=== PATIENT | female | born 1995 | race Two or more races ===

== ENCOUNTER 2024-07-15 09:34 | Emergency (ER) | payer OTHER ==
[~2024-07-15] VITALS: Ht 165.1 cm; Wt 115.2 kg
[2024-07-15] MEDS ORDERED: MESTINON60 M1 (09:53)
[2024-07-15] MEDS ORDERED: ACETAMINOPHEN 500 MG GEL..CAP PO ONE (11:00)
[2024-07-15 11:30] LABS: HEMATOCRIT 38.5 % (36.0-45.00); HEMOGLOBIN 12.9 g/dL (12.0-15.00); MEAN CELL VOLUME 84.4 fL (80.00-100.00); MEAN CORPUSCULAR HEMOGLOBIN 28.3 pg (27.00-32.0); MEAN CORPUSCULAR HGB CONC 33.5 g/dl (32.0-36.0); PLATELET COUNT 289 K/uL (150-450); RED BLOOD COUNT 4.56 M/uL (4.00-6.00); RED CELL DISTRIBUTION WIDTH 14.9 % (11.5-14.5)
[2024-07-15 12:14] LABS: CALCIUM 9.1 mg/dL (8.5-10.1); CREATININE SERUM 0.47 mg/dL (0.55-1.02); GFR 156.66; POTASSIUM 3.8 mEq/L (3.5-5.1)
[2024-07-15] MEDS ORDERED: PEPCID AC20 MG PO (12:27)
== END 2024-07-15 13:55 | disposition home or self-care (01) ==
LOC: ER 09:35
PROVIDERS: General Practice
DX: J06.9 Acute upper respiratory infection, unspecified (principal); J00 Acute nasopharyngitis [common cold]; Z87.09 Personal history of other diseases of the respiratory system; Z20.822 Contact with and (suspected) exposure to COVID-19

== ENCOUNTER 2024-08-26 11:21 | Inpatient (IN) | payer OTHER ==
[~2024-08-26] VITALS: Ht 165.1 cm; Wt 104.3 kg
[~2024-08-26 11:21] MED LIST: MESTINON60 M1; PEPCID AC20 MG PO
[2024-08-26] MEDS ORDERED: FAMOTIDINE/PF 20 MG/2 ML VIAL IV ONE (14:15)
[2024-08-26] MEDS ORDERED: 0.9 % SODIUM CHLORIDE 500 ML IV ONE (14:15)
[2024-08-26 15:21] LABS: HEMATOCRIT 39.9 % (36.0-45.00); MEAN CELL VOLUME 84.7 fL (80.00-100.00); MEAN CORPUSCULAR HEMOGLOBIN 27.6 pg (27.00-32.0); MEAN CORPUSCULAR HGB CONC 32.6 g/dl (32.0-36.0); PLATELET COUNT 241 K/uL (150-450); RED BLOOD COUNT 4.71 M/uL (4.00-6.00); RED CELL DISTRIBUTION WIDTH 15.3 % (11.5-14.5)
[2024-08-26 15:26] LABS: URINE APPEARANCE Clear; URINE BILIRRUBIN Negative (NEGATIVE); URINE BLOOD Negative; URINE COLOR Yellow; URINE GLUCOSE Negative (NEGATIVE); URINE KETONE Negative (NEGATIVE); URINE LEUKOCYTE Negative; URINE NITRATE Negative; URINE PROTEIN Negative (NEGATIVE); URINE UROBILINOGEN 0.2 E.U./dl
[2024-08-26 15:30] LABS: URINE BACTERIA 536.6 uL (0.0-1933); URINE EPITHELIAL CELLS 26.2 uL (0.0-38.8); URINE WBC 16.8 uL (0.0-23.2)
[2024-08-26 15:51] LABS: URINE RBC 1.2 uL (0.0-20.8)
[2024-08-26 16:03] LABS: ALBUMIN 3.8 gm/dL (3.4-5.0); BILIRUBIN TOTAL 0.35 mg/dL (0.3-1.2); CALCIUM 9.7 mg/dL (8.5-10.1); CREATININE SERUM 0.4 mg/dL (0.55-1.02); GFR 188.71; GLOBULINA 4.3 G/DL (2.4-3.5); POTASSIUM 3.98 mEq/L (3.5-5.1); TOTAL PROTEIN 8.1 gm/dL (6.4-8.2)
[2024-08-26] MEDS ORDERED: PIPERACILLIN/TAZOBACTAM SODIUM 3.375 GM VIAL IV ONE (17:00)
[2024-08-26] MEDS ORDERED: KETOROLAC TROMETHAMINE 30 MG VIAL IV ONE (17:00)
[2024-08-26 17:37] LABS: PARTIAL THROMBOPLASTIN TIME 27.9 SECONDS (22.0-34.0); PROTHROMBIN TIME 10.9 SECONDS (9.0-11.5)
[2024-08-26] MEDS ORDERED: ACETAMINOPHEN 500 MG GEL..CAP PO PRN (19:00)
[2024-08-26] MEDS ORDERED: 0.9 % SODIUM CHLORIDE 1,000 ML IV SCH (19:00)
[2024-08-26] MEDS ORDERED: MORPHINE SULFATE 4 MG/ML CARTRIDGE IV PRN (19:00)
[2024-08-26] MEDS ORDERED: ONDANSETRON HCL 4 MG in 0.9 % SODIUM CHLORIDE 50 ML IV PRN (19:00)
[2024-08-26] MEDS ORDERED: MORPHINE SULFATE 4 MG/ML CARTRIDGE IV ONE (19:00)
[2024-08-26] MEDS ORDERED: PYRIDOSTIGMINE BROMIDE 60 MG TABLET PO SCH (21:00)
[2024-08-26] MEDS ORDERED: SUGAMMADEX SODIUM 200 MG/2 ML VIAL IV ONE (23:45)
[2024-08-27] VITALS: BP 142/82; O2SAT 94
[2024-08-27] MEDS ORDERED: PIPERACILLIN/TAZOBACTAM SODIUM 3.375 GM in DEXTROSE 5 % IN WATER 100 ML IV SCH
[2024-08-27 03:00] VITALS: BP 106/71; O2SAT 100
[2024-08-27 08:58] VITALS: BP 107/72; O2SAT 99
[2024-08-27] MEDS ORDERED: LACTOBACILLUS ACIDOPHILUS 1 CAP CAP PO SCH (09:00)
[2024-08-27] MEDS ORDERED: SUCRALFATE 1 G TABLET PO SCH (09:00)
[2024-08-27] MEDS ORDERED: FAMOTIDINE/PF 20 MG in 0.9 % SODIUM CHLORIDE 8 ML IV PUSH SCH (09:00)
[2024-08-27] MEDS ORDERED: KETOROLAC TROMETHAMINE 30 MG VIAL IM PRN (14:45)
[2024-08-27 16:00] VITALS: BP 125/56; O2SAT 100
[2024-08-28 00:29] VITALS: BP 141/68; O2SAT 97
[2024-08-28 08:00] VITALS: BP 112/67; O2SAT 96
== END 2024-08-28 14:15 | disposition home or self-care (01) | DRG 399 ==
LOC: ER 11:23 → SEC-K 19:39 → SURG 19:39
PROVIDERS: Nurse Practitioner Family; Surgery; ADMIT Internal Medicine; ATTEND Internal Medicine
PROC: BW21YZZ Computerized Tomography (CT Scan) of Abdomen and Pelvis using Other Contrast (ICD-10-PCS; 2024-08-26)
PROC: 0DTJ4ZZ Resection of Appendix, Percutaneous Endoscopic Approach (ICD-10-PCS; principal; 2024-08-26 20:30)
DX: K35.890 Other acute appendicitis without perforation or gangrene (principal)

== ENCOUNTER 2024-11-17 12:15 | Emergency (ER) | payer OTHER ==
[~2024-11-17] VITALS: Ht 165.1 cm; Wt 104.3 kg
[2024-11-17] MEDS ORDERED: IPRATROPIUM/ALBUTEROL SULFATE 3 ML AMPUL.NEB IH SCH (13:45)
[2024-11-17] MEDS ORDERED: MAGNESIUM SULFATE IN WATER 50 ML IV NR (13:45)
[2024-11-17] MEDS ORDERED: METHYLPREDNISOLONE SOD SUCC 125 MG VIAL IV ONE (13:45)
[2024-11-17] MEDS ORDERED: IPRATROPIUM/ALBUTEROL SULFATE 3 ML AMPUL.NEB IH ONE (13:55)
[2024-11-17] MEDS ORDERED: METHYLPREDNISOLONE SOD SUCC 125 MG VIAL ONE (14:03)
[2024-11-17] MEDS ORDERED: MAGNESIUM SULFATE 50% 1,000 MG/2 ML VIAL ONE (14:03)
[2024-11-17 14:47] LABS: HEMATOCRIT 38.6 % (36.0-45.00); HEMOGLOBIN 12.6 g/dL (12.0-15.00); MEAN CELL VOLUME 85.2 fL (80.00-100.00); MEAN CORPUSCULAR HEMOGLOBIN 27.7 pg (27.00-32.0); MEAN CORPUSCULAR HGB CONC 32.5 g/dl (32.0-36.0); PLATELET COUNT 215 K/uL (150-450); RED BLOOD COUNT 4.53 M/uL (4.00-6.00); RED CELL DISTRIBUTION WIDTH 15.1 % (11.5-14.5)
[2024-11-17] MEDS ORDERED: KETOROLAC TROMETHAMINE 30 MG VIAL IV ONE (16:00)
[2024-11-17] MEDS ORDERED: KETOROLAC TROMETHAMINE 30 MG VIAL ONE (16:16)
[2024-11-17] MEDS ORDERED: ZITHROMAX TRI-500 MG PO (17:15)
[2024-11-17] MEDS ORDERED: ACETAMINOPHEN500 M1 PO (17:15)
[2024-11-17] MEDS ORDERED: GILTUSS COUGH-118 M1 PO (17:15)
[2024-11-17] MEDS ORDERED: ALBUTEROL2.5 MG/3 M IH (17:20)
== END 2024-11-17 17:27 | disposition home or self-care (01) ==
LOC: ER 12:18
PROVIDERS: Preventive Medicine Public Health & General Preventive Medicine
DX: J06.9 Acute upper respiratory infection, unspecified (principal); J45.909 Unspecified asthma, uncomplicated; G70.00 Myasthenia gravis without (acute) exacerbation; Z20.822 Contact with and (suspected) exposure to COVID-19

== ENCOUNTER 2025-02-10 11:30 | Emergency (ER) | payer OTHER ==
[~2025-02-10] VITALS: Ht 170.2 cm; Wt 113.4 kg
[~2025-02-10 11:30] MED LIST changes: +ACETAMINOPHEN500 M1 PO; +ALBUTEROL2.5 MG/3 M IH; +GILTUSS COUGH-118 M1 PO; +ZITHROMAX TRI-500 MG PO
[2025-02-10] MEDS ORDERED: FAMOtidine 10 MG/ML (4ML VIAL) IV ONE (12:00)
[2025-02-10] MEDS ORDERED: 0.9 % SODIUM CHLORIDE 1,000 ML IV ONE (12:00)
[2025-02-10] MEDS ORDERED: KETOROLAC TROMETHAMINE 30 MG VIAL IV ONE ×2 (12:00→16:30)
[2025-02-10] MEDS ORDERED: CHOLESTYRAMINE/ASPARTAME LIGHT 4 G/PKT PACKET PO ONE (12:00)
[2025-02-10] MEDS ORDERED: FAMOTIDINE/PF 20 MG/2 ML VIAL ONE (12:43)
[2025-02-10] MEDS ORDERED: KETOROLAC TROMETHAMINE 30 MG VIAL ONE ×2 (12:43→16:17)
[2025-02-10 12:54] LABS: URINE APPEARANCE Clear; URINE BILIRRUBIN Negative (NEGATIVE); URINE BLOOD Small; URINE COLOR Yellow; URINE GLUCOSE Negative (NEGATIVE); URINE KETONE Negative (NEGATIVE); URINE LEUKOCYTE Negative; URINE NITRATE Negative; URINE PROTEIN Negative (NEGATIVE); URINE UROBILINOGEN 0.2 E.U./dl
[2025-02-10 12:58] LABS: URINE BACTERIA 1501.6 uL (0.0-1933); URINE EPITHELIAL CELLS 40.6 uL (0.0-38.8); URINE RBC 4.2 uL (0.0-20.8); URINE WBC 23.4 uL (0.0-23.2)
[2025-02-10 13:04] LABS: HEMATOCRIT 38.1 % (36.0-45.00); HEMOGLOBIN 12.6 g/dL (12.0-15.00); MEAN CELL VOLUME 84.5 fL (80.00-100.00); MEAN CORPUSCULAR HEMOGLOBIN 28.1 pg (27.00-32.0); MEAN CORPUSCULAR HGB CONC 33.2 g/dl (32.0-36.0); PLATELET COUNT 251 K/uL (150-450)
[2025-02-10 13:33] LABS: ALBUMIN 3.8 gm/dL (3.4-5.0); ALKALINE PHOSPHATASE 90 U/L (50-136); ALT/SGPT 23 U/L (12-78); AMYLASE 53 U/L (25-115); ANION GAP 6 (10.0-20.0); AST/SGOT 12 U/L (15-37); BILIRUBIN TOTAL 0.38 mg/dL (0.3-1.2); BILIRUBIN,CONJUGATED 0.12 mg/dL (0.0-0.2); BILIRUBIN,UNCONJUGATED 0.26 mg/dL (0.0-0.6); BLOOD UREA NITROGEN 8 mg/dL (7-18); BUN CREA RATIO 23 (7.0-25.0); CALCIUM 9.4 mg/dL (8.5-10.1); CARBON DIOXIDE 31 mEq/L (21-32); CHLORIDE 106 mmol/L (98-107); CREATININE SERUM 0.35 mg/dL (0.55-1.02); GFR 218.64; GLOBULINA 4.4 G/DL (2.4-3.5); GLUCOSE FASTING 89 mg/dL (65-100); LIPASE 47 U/L (13-75); OSMOLALITY SERUM 275 MOSM/KG (275-295); POTASSIUM 4.11 mEq/L (3.5-5.1); SODIUM 139 mmol/L (136-145); TOTAL PROTEIN 8.2 gm/dL (6.4-8.2)
[2025-02-10 13:38] LABS: COVID-19 AG NEGATIVE (NEGATIVE)
[2025-02-10 13:39] LABS: INFLUENZA A AG NEGATIVE (NEGATIVE)
[2025-02-10 13:45] LABS: HCG QUANTITATIVE < 1 mUI/mL (1-3)
[2025-02-10] MEDS ORDERED: PEPCID AC20 MG PO (16:12)
[2025-02-10] MEDS ORDERED: ZOFRAN8 MG PO (16:12)
[2025-02-10] MEDS ORDERED: BENADRYL25 MG PO (16:13)
== END 2025-02-10 16:48 | disposition home or self-care (01) ==
LOC: ER 11:30
PROVIDERS: General Practice
DX: R19.7 Diarrhea, unspecified (principal); R11.0 Nausea; Z20.822 Contact with and (suspected) exposure to COVID-19

== ENCOUNTER 2025-03-09 13:38 | Emergency (ER) | payer OTHER ==
[~2025-03-09] VITALS: Ht 167.6 cm; Wt 113.4 kg
[~2025-03-09 13:38] MED LIST changes: +BENADRYL25 MG PO; +ZOFRAN8 MG PO
[2025-03-09] MEDS ORDERED: GUAIFENESIN/DEXTROMETHORPHAN 100MG/10ML BLIST.PACK PO ONE ×2 (15:45→15:50)
[2025-03-09 16:31] LABS: BASO % 0.4 % (0.1-1.2); EOS # 0.19 (0.04-0.54); EOS % 2.3 % (0.7-7.0); HEMATOCRIT 38.7 % (34.1-44.9); HEMOGLOBIN 12.5 g/dL (11.2-15.7); LYMPH # 3.12 (1.18-3.74); LYMPH % 38.5 % (19.3-53.1); MONO % 4.9 % (4.7-12.5); NEUT # 4.36 (1.56-6.13); NEUT % 53.8 % (34.0-71.1); PLATELET COUNT 302 K/uL (163-369); RED BLOOD COUNT 4.63 M/uL (3.93-5.22); RED CELL DISTRIBUTION WIDTH 13.7 % (11.6-14.4)
[2025-03-09 16:51] LABS: COVID-19 AG NEGATIVE (NEGATIVE); INFLUENZA A AG NEGATIVE (NEGATIVE); INFLUENZA B AG NEGATIVE (NEGATIVE)
[2025-03-09] MEDS ORDERED: TUSSIN DM LIQU118 ML PO (17:26)
[2025-03-10] MEDS ORDERED: NEURONTIN300 MG PO (12:53)
[2025-03-10] MEDS ORDERED: KETO10TA2 PO (12:53)
== END 2025-03-09 17:31 ==
LOC: ER 13:38
PROVIDERS: Preventive Medicine Public Health & General Preventive Medicine
DX: J00 Acute nasopharyngitis [common cold] (principal); R53.81 Other malaise; Z20.822 Contact with and (suspected) exposure to COVID-19

== ENCOUNTER 2025-03-10 05:50 | Emergency (ER) | payer OTHER ==
[~2025-03-10] VITALS: Ht 167.6 cm; Wt 113.4 kg
[~2025-03-10 05:50] MED LIST changes: +TUSSIN DM LIQU118 ML PO
[2025-03-10] MEDS ORDERED: BUTALB/ACETAMINOPHEN/CAFFEINE 1 TAB TABLET PO ONE ×2 (08:15→08:31)
[2025-03-10 09:26] LABS: BASO % 0.4 % (0.1-1.2); EOS # 0.14 (0.04-0.54); EOS % 2.1 % (0.7-7.0); HEMATOCRIT 36.8 % (34.1-44.9); HEMOGLOBIN 11.9 g/dL (11.2-15.7); LYMPH # 2.25 (1.18-3.74); LYMPH % 33.7 % (19.3-53.1); MEAN CORPUSCULAR HEMOGLOBIN 27.6 pg (25.6-32.2); MONO # 0.26 (0.24-0.82); MONO % 3.9 % (4.7-12.5); NEUT # 3.99 (1.56-6.13); NEUT % 59.8 % (34.0-71.1); PLATELET COUNT 294 K/uL (163-369); RED BLOOD COUNT 4.31 M/uL (3.93-5.22); RED CELL DISTRIBUTION WIDTH 13.7 % (11.6-14.4)
[2025-03-10] MEDS ORDERED: KETOROLAC TROMETHAMINE 60 MG VIAL IM ONE ×2 (11:15→11:18)
[2025-03-10 12:27] LABS: ALBUMIN 3.7 gm/dL (3.4-5.0); BILIRUBIN TOTAL 0.22 mg/dL (0.3-1.2); CREATININE SERUM 0.56 mg/dL (0.55-1.02); GFR 127.11; GLOBULINA 4.3 G/DL (2.4-3.5); POTASSIUM 4.28 mEq/L (3.5-5.1)
[2025-03-10] MEDS ORDERED: NEURONTIN300 MG PO (12:53)
[2025-03-10] MEDS ORDERED: KETO10TA2 PO (12:53)
== END 2025-03-10 14:31 | disposition home or self-care (01) ==
LOC: ER 05:50
PROVIDERS: General Practice
DX: G50.0 Trigeminal neuralgia (principal)

== ENCOUNTER 2025-07-27 11:19 | Emergency (ER) | payer OTHER ==
[~2025-07-27] VITALS: Ht 165.1 cm; Wt 105.2 kg
[~2025-07-27 11:19] MED LIST changes: +KETO10TA2 PO; +NEURONTIN300 MG PO
[2025-07-27 13:10] VITALS: BP 82/52; O2SAT 99
[2025-07-27] MEDS ORDERED: KETOROLAC TROMETHAMINE 60 MG VIAL IM ONE ×2 (13:45→13:54)
[2025-07-27] MEDS ORDERED: DEXAMETHASONE SODIUM PHOSPHATE 4 MG/ML VIAL IM ONE (13:45)
[2025-07-27] MEDS ORDERED: ACETAMINOPHEN 500 MG GEL..CAP PO ONE ×2 (13:45→13:54)
[2025-07-27] MEDS ORDERED: GUAIFENESIN 100 MG/5 ML BLIST.PACK PO ONE (13:45)
[2025-07-27] MEDS ORDERED: DEXAMETHASONE SODIUM PHOSPHATE 4 MG/ML VIAL ONE (13:54)
[2025-07-27] MEDS ORDERED: GUAIFENESIN 200 MG/10 ML BLIST.PACK PO ONE (13:54)
[2025-07-27 14:39] LABS: BASO % 0.4 % (0.1-1.2); EOS # 0.10 (0.04-0.54); EOS % 1.3 % (0.7-7.0); LYMPH # 2.64 (1.18-3.74); LYMPH % 35.5 % (19.3-53.1); MEAN PLATELET VOLUME 11.50 fl (9.4-12.4); MONO # 0.24 (0.24-0.82); MONO % 3.2 % (4.7-12.5); NEUT # 4.40 (1.56-6.13); NEUT % 59.3 % (34.0-71.1); RED CELL DISTRIBUTION WIDTH 14.0 % (11.6-14.4)
[2025-07-27 14:56] LABS: COVID-19 AG NEGATIVE (NEGATIVE)
[2025-07-27 15:37] LABS: URINE APPEARANCE Cloudy; URINE BILIRRUBIN Negative (NEGATIVE); URINE BLOOD Negative; URINE COLOR Yellow; URINE GLUCOSE Negative (NEGATIVE); URINE KETONE Negative (NEGATIVE); URINE LEUKOCYTE Negative; URINE NITRATE Negative; URINE PROTEIN Negative (NEGATIVE); URINE UROBILINOGEN 0.2 E.U./dl
[2025-07-27 15:38] LABS: URINE BACTERIA 5563.2 uL (0.0-1933); URINE EPITHELIAL CELLS 55.0 uL (0.0-38.8); URINE RBC 4.9 uL (0.0-20.8); URINE WBC 107.0 uL (0.0-23.2)
[2025-07-27 15:58] LABS: ALT/SGPT 26.0 U/L (12-78); AST/SGOT 15.0 U/L (15-37); BILIRUBIN TOTAL 0.31 mg/dL (0.3-1.2); BUN CREA RATIO 17.0 (7.0-25.0); CREATININE SERUM 0.41 mg/dL (0.55-1.02); GFR 182.15; GLOBULINA 3.6 G/DL (2.4-3.5); GLUCOSE FASTING 79.0 mg/dL (65-100); OSMOLALITY SERUM 278.0 MOSM/KG (275-295)
[2025-07-27 16:13] LABS: TYPE CELLS SQUAMOUS; URINE CAST 0.00 uL (0.0-1.40)
[2025-07-27] MEDS ORDERED: GUAIFENESIN AC C5 ML PO (16:26)
[2025-07-27] MEDS ORDERED: MACROBID 100 M100 MG PO (16:26)
== END 2025-07-27 21:18 | disposition home or self-care (01) ==
LOC: ER 11:20
DX: B34.9 Viral infection, unspecified (principal); N39.0 Urinary tract infection, site not specified; E03.8 Other specified hypothyroidism; Z20.822 Contact with and (suspected) exposure to COVID-19